=== PATIENT | female | born 2000 | race Caucasian/White ===

== ENCOUNTER 2021-01-28 19:44 | Inpatient (IN) | payer OTHER ==
[~2021-01-28] VITALS: Ht 172.7 cm; Wt 79.2 kg
[2021-01-28] MEDS ORDERED: NS 1,000 ML IV ONE (21:25)
[2021-01-28 22:34] LABS: BASO # 0.1 10^3/uL (0.0-0.2); BASO % 0.3 % (0.0-1.0); EOS # 0.1 10^3/uL (0.0-0.5); EOS % 0.7 % (0.0-3.0); HEMATOCRIT 36.4 % (36.0-47.0); HEMOGLOBIN 11.7 g/dl (12.0-15.5); LYMPH # 1.3 10^3/uL (1.5-5.0); LYMPH % 7.2 % (24.0-44.0); MEAN CORPUSCULAR HGB CONC 32.1 g/dl (32.0-36.5); MEAN CORPUSCULAR VOLUME 93.3 fl (80.0-96.0); MONO # 0.8 10^3/uL (0.0-0.8); MONO % 4.2 % (2.0-8.0); NEUTROPHILS # 16.2 10^3/uL (1.5-8.5); NEUTROPHILS % 86.9 % (36.0-66.0); PLATELET COUNT, AUTOMATED 307 10^3/uL (150-450); WHITE BLOOD COUNT 18.7 10^3/uL (4.0-10.0)
[2021-01-28 23:01] LABS: ALBUMIN 3.3 GM/DL (3.2-5.2); ALT/SGPT 14 U/L (12-78); AMYLASE 29 U/L (25-115); BILIRUBIN,DIRECT 0.1 MG/DL (0.0-0.2); BILIRUBIN,TOTAL 0.3 MG/DL (0.2-1.0); BLOOD UREA NITROGEN 7 MG/DL (7-18); CALCIUM LEVEL 8.4 MG/DL (8.5-10.1); CARBON DIOXIDE LEVEL 26 MEQ/L (21-32); CHLORIDE LEVEL 106 MEQ/L (98-107); CREATININE FOR GFR 0.56 MG/DL (0.55-1.30); GLUCOSE, FASTING 76 MG/DL (70-100); LIPASE 43 U/L (73-393); POTASSIUM SERUM 3.7 MEQ/L (3.5-5.1); SODIUM LEVEL 140 MEQ/L (136-145); TOTAL PROTEIN 6.6 GM/DL (6.4-8.2)
[2021-01-28 23:09] LABS: HCG, SERUM QUALITATIVE POSITIVE (NEGATIVE)
[2021-01-28] MEDS ORDERED: ACETAMINOPHEN 500 MG TAB PO ONE (23:25)
[2021-01-28] MEDS ORDERED: NS 1,380 ML in IV 1 EA IV ONE (23:40)
[2021-01-29 00:03] LABS: HCG, SERUM QUANTITATIVE 11290 MIU/ML
[2021-01-29] MEDS: cefTRIAXone SOD 1 GM in D5W MINI-BAG PLUS 50 ML IV SCH ×2 (00:16→23:11)
--- NOTE | 2021-01-29 00:45 | REPVR ---
PROCEDURE INFORMATION: Exam: US After First Trimester, Transabdominal Exam date and time: 01/29/2021 12:12 AM Age: 20 years old Clinical indication: complicated by abdominal or pelvic pain; Right lower quadrant; Second trimester; Gestational age or lmp: 15w6d; ; Additional info: Rlq pain, positive hcg TECHNIQUE: Imaging protocol: Real-time transabdominal obstetrical ultrasound of the maternal pelvis and a second or third trimester with image documentation. COMPARISON: No relevant prior studies available. FINDINGS: Gestation: Single intrauterine fetus. heart rate: heartbeat of 169 bpm. presentation: Cephalic presentation Placenta: Anterior placenta. Amniotic fluid: Amniotic fluid is normal for gestational age. ANATOMY: The cord, cord insertion and stomach are normal. BIOMETRY: Gestational age (AUA): The composite gestational age by ultrasound is 16 weeks 1 day. Estimated due date (AUA): The EDC is 07/14/2021. Estimated weight: The estimated weight is 138 grams and is 2nd percentile. Estimated weight percentile: 2nd percentile Biparietal diameter: The BPD measures 3.3 cm suggesting an age of 16 weeks 3 days. Head circumference: The head circumference measures 11.9 cm suggesting an age of 16 weeks 0 days. Abdominal circumference: The abdominal circumference measures 10.3 cm suggesting an age of 16 weeks 3 days. Femur length: The femur length measures 1.8 cm suggesting an age of 15 weeks 4 days. MATERNAL ANATOMY: Uterus: Unremarkable. Cervix: The cervix is closed measuring 2.3 cm in length. Right adnexa: The right ovary is not seen. Left adnexa: The left ovary measures 2.9 x 3.6 x 2.2 cm and demonstrates blood flow. IMPRESSION: Single live intrauterine fetus in cephalic presentation with a composite age of 16 weeks 1 day. The EDC is 07/14/2021. Electronically signed by: Weston Worley On 01/29/2021 00:45:14 AM
[2021-01-29 01:25] LABS: RSV AMPLIFICATION NEGATIVE (NEGATIVE)
--- NOTE | 2021-01-29 03:20 | REPVR ---
PROCEDURE INFORMATION: Exam: MR Abdomen Without Contrast Exam date and time: 01/29/2021 2:29 AM Age: 20 years old Clinical indication: Abdominal pain; Other: Rlq; Patient HX: PT and complains of RT lower quadrant pain that also radiates to her RT flank and back. ; Additional info: Rlq pain, , R/O appendicitis TECHNIQUE: Imaging protocol: MR of the abdomen without contrast. COMPARISON: US OBS SINGEL GEST 01/28/2021 11:39 PM FINDINGS: Liver: No mass. Gallbladder and bile ducts: Unremarkable. No stones. No ductal dilation. Pancreas: Unremarkable. No ductal dilation. Spleen: Unremarkable. No splenomegaly. Adrenal glands: Unremarkable. No mass. Kidneys and ureters: Mild right hydronephrosis. Stomach and bowel: Visualized stomach and intestines are unremarkable. Appendix: No evidence of acute appendicitis although the appendix is not clearly visualized. Intraperitoneal space: No free fluid. Arteries: No abdominal aortic aneurysm. Reproductive: Gravid uterus. Bones/joints: Unremarkable. Soft tissues: Unremarkable. IMPRESSION: No evidence of acute appendicitis although the appendix is not clearly visualized. Mild right hydronephrosis. Electronically signed by: Roverto Ponce On 01/29/2021 03:20:18 AM
--- NOTE | 2021-01-29 05:59 | HPEPDOC ---
[facility] Medical History & Physical Date of Admission Jan 29, 2021 Date of Service: Jan 29, 2021 Attending Physician: DHAVAL MICHAEL DO History and Physical CHIEF COMPLAINT: Right-sided flank/back pain HISTORY OF PRESENT ILLNESS: Sylvia is a 20yo at 16+1wks by today's U/S with EDC [id number] who presented to ER for c/o 1 day of right-sided flank/back pain. She reports she did not know she was until ER evaluation. She reports nausea and vomiting after the onset of pain but it has improved with zofran in the ER. She reports her pain is already improving since treatment in the ER. She reports she is very overwhelmed right now learning she is . She is unsure of exact conception or FOB. She is unsure if she wants to keep the . Denies VB, abnml vaginal discharge, or pelvic pain. 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 Children: None Employment: [employer] Tobacco use:Endorses smoking 1 cigarette daily. ETOH: Endorses ETOH use 2-3x weekly with last drink yesterday. Illicit drug use: Denies IV drug use: Denies Other relevant social factors: FAMILY HISTORY: Denies ALLERGIES: NKDA REVIEW OF SYSTEMS: Denies GARCIA, chest pain, SOB, pelvic pain, dysuria, abnml vaginal discharge, diarrhea, constipation, VB. HOME MEDICATIONS: Denies PHYSICAL EXAMINATION: VITAL SIGNS: Normotensive, noted to have Tmax of 100.4 in ER with tachycardia GENERAL APPEARANCE: Resting comfortably in bed in NAD conversing in full sentences HEENT: NC/AT, airway patent and self-maintained CARDIOVASCULAR: Well-perfused LUNGS: No exaggerated respiratory effort appreciated ABDOMEN: Soft, nontender, nondistended, U-4 EXTREMITIES: No edema, no calf tenderness PSYCHIATRIC: mood congruent with affect LABORATORY DATA: See below. IMAGING: Exam: US After First Trimester, Transabdominal Exam date and time: 01/29/2021 12:12 AM Age: 20 years old Clinical indication: complicated by abdominal or pelvic pain; Right lower quadrant; Second trimester; Gestational age or lmp: 15w6d; ; Additional info: Rlq pain, positive hcg TECHNIQUE: Imaging protocol: Real-time transabdominal obstetrical ultrasound of the maternal pelvis and a second or third trimester with image documentation. COMPARISON: No relevant prior studies available. FINDINGS: Gestation: Single intrauterine fetus. heart rate: heartbeat of 169 bpm. presentation: Cephalic presentation Placenta: Anterior placenta. Amniotic fluid: Amniotic fluid is normal for gestational age. ANATOMY: The cord, cord insertion and stomach are normal. BIOMETRY: Gestational age (AUA): The composite gestational age by ultrasound is 16 weeks 1 day. Estimated due date (AUA): The EDC is 07/14/2021. Estimated weight: The estimated weight is 138 grams and is 2nd percentile. Estimated weight percentile: 2nd percentile Biparietal diameter: The BPD measures 3.3 cm suggesting an age of 16 weeks 3 days. Head circumference: The head circumference measures 11.9 cm suggesting an age of 16 weeks 0 days. Abdominal circumference: The abdominal circumference measures 10.3 cm suggesting an age of 16 weeks 3 days. Femur length: The femur length measures 1.8 cm suggesting an age of 15 weeks 4 days. MATERNAL ANATOMY: Uterus: Unremarkable. Cervix: The cervix is closed measuring 2.3 cm in length. Right adnexa: The right ovary is not seen. Left adnexa: The left ovary measures 2.9 x 3.6 x 2.2 cm and demonstrates blood flow. IMPRESSION: Single live intrauterine fetus in cephalic presentation with a composite age of 16 weeks 1 day. The EDC is 07/14/2021. Electronically signed by: Weston Worley On 01/29/2021 00:45:14 AM MRI PROCEDURE INFORMATION: Exam: MR Abdomen Without Contrast Exam date and time: 01/29/2021 2:29 AM Age: 20 years old Clinical indication: Abdominal pain; Other: Rlq; Patient HX: PT and complains of RT lower quadrant pain that also radiates to her RT flank and back. ; Additional info: Rlq pain, , R/O appendicitis TECHNIQUE: Imaging protocol: MR of the abdomen without contrast. COMPARISON: US OBS SINGEL GEST 01/28/2021 11:39 PM FINDINGS: Liver: No mass. Gallbladder and bile ducts: Unremarkable. No stones. No ductal dilation. Pancreas: Unremarkable. No ductal dilation. Spleen: Unremarkable. No splenomegaly. Adrenal glands: Unremarkable. No mass. Kidneys and ureters: Mild right hydronephrosis. Stomach and bowel: Visualized stomach and intestines are unremarkable. Appendix: No evidence of acute appendicitis although the appendix is not clearly visualized. Intraperitoneal space: No free fluid. Arteries: No abdominal aortic aneurysm. Reproductive: Gravid uterus. Bones/joints: Unremarkable. Soft tissues: Unremarkable. IMPRESSION: No evidence of acute appendicitis although the appendix is not clearly visualized. Mild right hydronephrosis. Electronically signed by: Roverto Ponce On 01/29/2021 03:20:18 AM MICROBIOLOGY: Please see below. Urine culture pending ASSESSMENT: 20yo at 16+1wks with complicated UTI vs pyelonephritis notable for right-sided flank pain, +UA, and elevated WBC. . PLAN: 1. Rocephin abx 1gm q24hr until 24hrs afebrile then transition to oral antibi otics 2. PNV daily 3. Zofran prn N/V 4. Tylenol prn pain/fever 5. CBC/BMP QAM for trend 6. IV fluids with NS @150ml/hr 7. Vitals q4h, doptones daily 8. Regular diet as tolerated 9. Encourage ambulation OOB as tolerated Approx 30 minutes was spent at the bedside counseling patient in regards to ter mination (if desired, patient aware not covered by or done by providers with referral to [facility]), care plan, support programs to include [facility] at 28wks to get her out of [facility] for housing, chapter 8 to exit the , childcare support with recommendation to get on wait list now for slot, ACS/WIC services. Patient does not know who FOB is, discussed that unable to complete paternity testing in utero through but this an option for significant ayo-iv-ryeqzf cost through outside labs if desired. Patient appreciated to be very overwhelmed at the news she is and is undecided at this time but appreciative of the information given today. Vital Signs Vital Signs Date Time Temp Pulse Resp B/P (MAP) Pulse Ox O2 Delivery O2 Flow Rate FiO2 01/29/21 03:57 99.5 79 14 112/62 (79) 97 Room Air Laboratory Data Labs 24H Laboratory Tests 2 01/28/21 21:40: Urine Color YELLOW, Urine Appearance TURBIDH, Urine pH 6.0, Urine Specific [place] 1.013, Urine Protein 2+H, Urine Glucose (UA) NEGATIVE, Urine Ketones TRACEH, Urine Blood 2+H, Urine Nitrite POSITIVEH, Urine Bilirubin NEGATIVE, Urine Urobilinogen 0.2, Urine Leukocyte Esterase 3+H, Urine WBC (Auto) TNTCH, Urine RBC (Auto) 42H, Urine Hyaline Casts (Auto) 0, Urine Bacteria (Auto) 2+H, Urine Squamous Epithelial Cells 0, Urine Mucus (Auto) SMALL, Urine Sperm (Auto) 01/28/21 22:27: Immature Granulocyte % (Auto) 0.7, Neutrophils (%) (Auto) 86.9H, Lymphocytes (%) (Auto) 7.2L, Monocytes (%) (Auto) 4.2, Eosinophils (%) (Auto) 0.7, Basophils (%) (Auto) 0.3, Neutrophils # (Auto) 16.2H, Lymphocytes # (Auto) 1.3L, Monocytes # (Auto) 0.8, Eosinophils # (Auto) 0.1, Basophils # (Auto) 0.1, Nucleated Red Blood Cells % (auto) 0.0, Anion Gap 8, Calcium Level 8.4L, Total Bilirubin 0.3, Direct Bilirubin 0.1, Aspartate Amino Transf (AST/SGOT) 7, Alanine Aminotransferase (ALT/SGPT) 14, Alkaline Phosphatase 52, Total Protein 6.6, Albumin 3.3, Albumin/Globulin Ratio 1.0L, Amylase Level 29, Lipase 43L, Human Chorionic Gonadotropin, Qual POSITIVEA, Human Chorionic Gonadotropin, Quant [id number] 01/29/21 00:39: Lactic Acid Level 1.5, Coronavirus (COVID-19)(PCR) NEGATIVE, Influenza Type A (RT-PCR) NEGATIVE, Influenza Type B (RT-PCR) NEGATIVE, Respiratory Syncytial Virus (PCR) NEGATIVE CBC/BMP Laboratory Tests 01/28/21 22:27 Microbiology Microbiology 01/28/21 Urine Culture, Received Pending Home Medications No Active Prescriptions or Reported Meds Allergies Coded Allergies: No Known Allergies (Unverified , 01/28/21) A-FIB/CHADSVASC A-FIB History Current/History of A-Fib/PAF?: No Current PO Anticoag Therapy: No DHAVAL MICHAEL DO Jan 29, 2021 05:52
[2021-01-29 06:03] VITALS: BP 118/54
[2021-01-29 09:58] VITALS: BP 103/55
[2021-01-29 14:08] VITALS: BP 105/52
[2021-01-29 17:59] VITALS: BP 135/62
[2021-01-29 22:00] VITALS: BP 123/55
[2021-01-30 02:00] VITALS: BP 113/54
[2021-01-30 05:53] VITALS: BP 118/56
--- NOTE | 2021-01-30 06:58 | DS.PDOC ---
Discharge Summary General Date of Admission Jan 29, 2021 at 0401 am Date of Discharge 01/30/2021 Primary Care Physician: DHAVAL MICHAEL DO Attending Physician: Mark Roy MD Discharge Summary PROCEDURES PERFORMED DURING STAY: [None]. ADMITTING DIAGNOSES: 1. 16 week complicated by UTI DISCHARGE DIAGNOSES: 1. 16 week complicated by UTI COMPLICATIONS/CHIEF COMPLAINT: 15WKS ,Complicated UTI. HISTORY OF PRESENT ILLNESS: ADMITTED THROUGH ED WITH HISTORY RIGHT FLANK PAIN WORK UP DISCOVERY OF AND COMPLICATED BY UTI . HOSPITAL COURSE: RESOLVING UTI AFTER 2 DOSES OF ROCEPHIN AND IV FLUIDS . DISCHARGE MEDICATIONS: MEDICATION AT [facility] ALLERGIES: Please see below. PHYSICAL EXAMINATION ON DISCHARGE: VITAL SIGNS: Please see below. GENERAL: WELL HYDRATED HEENT: NORMAL NECK: NO JVD NO BRUITS CARDIOVASCULAR EXAMINATION: S1 S2 NORMAL NO MURMURS REGULAR RHYTHM NO CLICKS NO RUBS RESPIRATORY EXAMINATION: CLEAR TO BASES ABDOMINAL EXAMINATION: BS NORMAL SF HEIGHT 15 WEEKS FH ACTIVE EXTREMITIES: NO EDEMA NO DVT SKIN: COOL DRY NEUROLOGICAL EXAMINATION: NORMAL PSYCHIATRIC EXAMINATION: NORMAL LABORATORY DATA: Please see below. IMAGING: PROGNOSIS:RECOVERING FROM UTI ACTIVITY: [As tolerated]. 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 DISCHARGE INSTRUCTIONS: 1. REST MEDICATION FLUIDS MAKE FIRST OB APPOINTMENT AT [facility] OB ITEMS TO FOLLOWUP ON ON OUTPATIENT: 1. . DISCHARGE CONDITION: [Stable]. TIME SPENT ON DISCHARGE: Greater than 25 minutes. Vital Signs/I&Os Vital Signs Date Time Temp Pulse Resp B/P (MAP) Pulse Ox O2 Delivery O2 Flow Rate FiO2 01/30/21 05:53 99.9 83 18 118/56 (76) 98 Room Air I&O- Last 24 Hours up to 6 AM 01/30/21 05:59 Intake Total 3940 ml Output Total 5375 ml Balance -1435 ml Laboratory Data Labs 24H Item Value Date Time Sodium Level 140 MEQ/L 01/28/212226 Potassium Level 3.7 MEQ/L 01/28/212226 Chloride Level 106 MEQ/L 01/28/212226 Carbon Dioxide Level 26 MEQ/L 01/28/212226 Anion Gap 8 MEQ/L 01/28/212226 Blood Urea Nitrogen 7 MG/DL 01/28/212226 Creatinine 0.56 MG/DL 01/28/212226 Fasting Glucose 76 MG/DL 01/28/212226 Lactic Acid Level 1.5 MMOL/L 01/29/219 Calcium Level 8.4 MG/DL L 01/28/212226 Total Bilirubin 0.3 MG/DL 01/28/212226 Direct Bilirubin 0.1 MG/DL 01/28/212226 Alanine Aminotransferase (ALT/SGPT) 14 U/L 01/28/212226 Aspartate Amino Transf (AST/SGOT) 7 U/L 01/28/212226 Alkaline Phosphatase 52 U/L 01/28/212226 Total Protein 6.6 GM/DL 01/28/212226 Albumin 3.3 GM/DL 01/28/212226 Albumin/Globulin Ratio 1.0 L 01/28/212226 Lipase 43 U/L L 01/28/212226 Human Chorionic Gonadotropin, Qual POSITIVE A 01/28/212226 Human Chorionic Gonadotropin, Quant [id number] MIU/ML 01/28/212226 CBC/BMP Item Value Date Time White Blood Count 18.7 10^3/uL H 01/28/212226 Red Blood Count 3.90 10^6/uL L 01/28/212226 Hemoglobin 11.7 g/dl L 01/28/212226 Hematocrit 36.4 % 01/28/212226 Mean Corpuscular Volume 93.3 fl 01/28/212226 Mean Corpuscular Hemoglobin 30.0 pg 01/28/212226 Mean Corpuscular Hemoglobin Concent 32.1 g/dl 01/28/212226 Red Cell Distribution Width 12.3 % 01/28/212226 Platelet Count 307 10^3/uL 01/28/212226 Immature Granulocyte % (Auto) 0.7 % 01/28/212226 Neutrophils (%) (Auto) 86.9 % H 01/28/212226 Lymphocytes (%) (Auto) 7.2 % L 01/28/212226 Monocytes (%) (Auto) 4.2 % 01/28/212226 Eosinophils (%) (Auto) 0.7 % 01/28/212226 Basophils (%) (Auto) 0.3 % 01/28/212226 Neutrophils # (Auto) 16.2 10^3/uL H 01/28/21 2227 Lymphocytes # (Auto) 1.3 10^3/uL L 01/28/212226 Monocytes # (Auto) 0.8 10^3/uL 01/28/212226 Eosinophils # (Auto) 0.1 10^3/uL 01/28/212226 Basophils # (Auto) 0.1 10^3/uL 01/28/212226 Microbiology Microbiology 01/28/21 Urine Culture, Received Pending Discharge Medications No Active Prescriptions or Reported Meds Allergies Coded Allergies: No Known Allergies (Unverified , 01/28/21) Mark Roy MD Jan 30, 2021 06:42
[2021-01-30 07:44] LABS: BLOOD UREA NITROGEN 5 MG/DL (7-18); CALCIUM LEVEL 8.2 MG/DL (8.5-10.1); CARBON DIOXIDE LEVEL 23 MEQ/L (21-32); CHLORIDE LEVEL 111 MEQ/L (98-107); CREATININE FOR GFR 0.42 MG/DL (0.55-1.30); GLUCOSE, FASTING 76 MG/DL (70-100); POTASSIUM SERUM 3.8 MEQ/L (3.5-5.1); SODIUM LEVEL 141 MEQ/L (136-145)
== END 2021-01-30 09:05 | disposition home or self-care (01) | DRG 833 ==
LOC: M ED 19:44 → EEVIPCON 01-29 04:01 → M ED INP 01-29 04:01 → M OBS 01-29 05:30
DX: O23.42 Unspecified infection of urinary tract in pregnancy, second trimester (principal); Z3A.16 16 weeks gestation of pregnancy; Z20.822 Contact with and (suspected) exposure to COVID-19

== ENCOUNTER 2021-02-04 11:11 | Emergency (ER) | payer OTHER ==
[~2021-02-04] VITALS: Ht 203.2 cm; Wt 81.9 kg
[2021-02-04 12:52] LABS: BASO # 0.1 10^3/uL (0.0-0.2); BASO % 0.5 % (0.0-1.0); EOS # 0.1 10^3/uL (0.0-0.5); EOS % 0.9 % (0.0-3.0); HEMATOCRIT 35.9 % (36.0-47.0); HEMOGLOBIN 11.9 g/dl (12.0-15.5); LYMPH # 1.9 10^3/uL (1.5-5.0); MEAN CORPUSCULAR HEMOGLOBIN 30.2 pg (27.0-33.0); MEAN CORPUSCULAR HGB CONC 33.1 g/dl (32.0-36.5); MEAN CORPUSCULAR VOLUME 91.1 fl (80.0-96.0); MONO # 0.4 10^3/uL (0.0-0.8); MONO % 3.1 % (2.0-8.0); NEUTROPHILS # 9.4 10^3/uL (1.5-8.5); NEUTROPHILS % 78.6 % (36.0-66.0); PLATELET COUNT, AUTOMATED 367 10^3/uL (150-450); RED BLOOD COUNT 3.94 10^6/uL (4.00-5.40)
[2021-02-04] MEDS ORDERED: NS 1,000 ML IV ONE (13:05)
[2021-02-04 13:26] LABS: ALBUMIN 3.5 GM/DL (3.2-5.2); ALT/SGPT 15 U/L (12-78); BILIRUBIN,DIRECT < 0.1 MG/DL (0.0-0.2); BILIRUBIN,TOTAL 0.3 MG/DL (0.2-1.0); FREE T4 1.11 NG/DL (0.78-1.33); LIPASE 47 U/L (73-393); THYROID STIMULATING HORMONE 0.635 uIU/ML (0.463-3.98); TOTAL PROTEIN 6.9 GM/DL (6.4-8.2)
[2021-02-04 14:19] VITALS: BP 132/68
[2021-02-04 14:21] LABS: APPEARANCE, URINE HAZY (CLEAR); BACTERIA, URINE AUTO NEGATIVE (NEGATIVE); BILIRUBIN, URINE AUTO NEGATIVE (NEGATIVE); BLOOD, URINE BLOOD NEGATIVE (NEGATIVE); COLOR, URINE YELLOW (YELLOW); GLUCOSE, URINE (UA) AUTO NEGATIVE (NEGATIVE); KETONE, URINE AUTO TRACE mg/dL (NEGATIVE); LEUKOCYTE ESTERASE, URINE AUTO TRACE (NEGATIVE); MUCUS, URINE SMALL (NEGATIVE); NITRITE, URINE AUTO NEGATIVE (NEGATIVE); PROTEIN, URINE AUTO NEGATIVE (NEGATIVE); RBC, URINE AUTO 1 /HPF (0-3); SPECIFIC GRAVITY URINE AUTO 1.014 (1.002-1.035); SQUAMOUS EPITHELIAL CELL UR AU 1 /HPF (0-6); UROBILINOGEN, URINE AUTO 0.2 mg/dL (0.0-2.0); WBC, URINE AUTO 2 /HPF (0-3)
--- NOTE | 2021-02-04 17:39 | ECGEPIP ---
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
== END 2021-02-04 14:21 | disposition home or self-care (01) ==
LOC: M ED 11:11
DX: O99.891 Other specified diseases and conditions complicating pregnancy (principal); R55 Syncope and collapse; Z3A.16 16 weeks gestation of pregnancy

== ENCOUNTER 2021-07-13 04:16 | Inpatient (IN) | payer OTHER ==
[2021-07-13] VITALS (34 sets, daily range): BP systolic 98–151; BP diastolic 57–91
[~2021-07-13] VITALS: Ht 172.7 cm; Wt 92.4 kg
[2021-07-13] MEDS ORDERED: VITA500C24 PO (05:03)
[2021-07-13] MEDS ORDERED: FERR325T3 PO (05:03)
[2021-07-13] MEDS ORDERED: PRENTAB9 PO (05:03)
[2021-07-13] MEDS ORDERED: MACR100C43 PO (05:03)
[2021-07-13] MEDS ORDERED: HOME MED LIST COMPLETE! XX SCH (05:05)
[2021-07-13] MEDS ORDERED: OXYTOCIN INJ 10 UNITS/ML VIAL (J2590) IV PRN (05:45)
[2021-07-13] MEDS ORDERED: LR 1,000 ML IV SCH (05:45)
[2021-07-13] MEDS ORDERED: METHYLERGONOVINE MALEATE 0.2 MG/ML VIAL (J2210) IM PRN (05:45)
[2021-07-13] MEDS ORDERED: LACTATED RINGER'S 1000 ML IV ONE (05:45)
[2021-07-13] MEDS ORDERED: OXYTOCIN DRIP 30 UNITS in IV 1 EA IV PRN ×4 (05:45)
[2021-07-13 06:12] LABS: HEMOGLOBIN 10.8 g/dl (12.0-15.5); MEAN CORPUSCULAR HEMOGLOBIN 30.9 pg (27.0-33.0); MEAN CORPUSCULAR HGB CONC 33.8 g/dl (32.0-36.5); MEAN CORPUSCULAR VOLUME 91.4 fl (80.0-96.0); PLATELET COUNT, AUTOMATED 257 10^3/uL (150-450); WHITE BLOOD COUNT 16.4 10^3/uL (4.0-10.0)
[2021-07-13] MEDS ORDERED: FENTANYL 2MCG/ML ROPIVACAINE 0.2% IN 0.9% NACL 100ML IVBAG As Ordered ONE (06:32)
[2021-07-13] MEDS ORDERED: PIPERACILLIN/TAZOBACTAM SOD 2.25 GM in D5W MINI-BAG PLUS 50 ML IV SCH (07:00)
[2021-07-13] MEDS ORDERED: ePHEDrine SULFATE 25 MG/5 ML(5MG/ML) SYRINGE IV PRN (07:20)
[2021-07-13] MEDS ORDERED: ONDANSETRON 4MG/2ML VIAL IV PRN (07:20)
[2021-07-13] MEDS ORDERED: NALOXONE INJ 0.4MG/1ML VIAL (J2310 PER 1MG) IV PRN (07:20)
[2021-07-13] MEDS ORDERED: LACTATED RINGER'S 1000 ML IV PRN (07:20)
[2021-07-13] MEDS ORDERED: FENTANYL/ROPIVACAINE/NACL BAG 100 ML EPIDURAL SCH (07:20)
[2021-07-13] MEDS ORDERED: diphenhydrAMINE 50MG/ML VIAL (J1200) IV PRN (07:20)
[2021-07-13] MEDS ORDERED: EPIDURAL/PCA KEYS XX PRN (07:20)
[2021-07-13] MEDS ORDERED: REFRIGERATOR IV KEYS XX PRN (07:20)
[2021-07-13] MEDS ORDERED: EPIDURAL COMMENT XX SCH (07:20)
[2021-07-13] MEDS ORDERED: OXYTOCIN DRIP 30 UNITS in IV 1 EA IV SCH ×3 (08:45→13:50)
--- NOTE | 2021-07-13 09:41 | IPNPDOC ---
Obstetrical Progress Note Date of Service Jul 13, 2021 Subjective Pt comfortable with epidural. No complaints at this time. Objective Vital Signs Date Time Temp Pulse Resp B/P (MAP) Pulse Ox O2 Delivery O2 Flow Rate FiO2 07/13/21 08:28 53 133/75 (94) 07/13/21 07:40 98.9 07/13/21 07:34 18 Assessment Heart Rate (FHR): 120 Variability: Moderate Accelerations: Positive Decelerations: None Heart Rate Tracing: Category I Tocometer Contractions: Yes Frequency: irregular, every 1-5 min. Sterile Vaginal Examination Dilation: 7 cm Effacement (%): 90% Station: -1, 0 Cervical Consistency: Soft Cervical Position: Middle Postion/Presentation: Cephalic presentation Assessment and Plan Status: Reassuring Group B Streptococcus: Positive (ESBL +, sensitive to zosyn) Anticipate: Vaginal Delivery Additional Comments 20yo at 39w6d by 16wk US with RUBIO Jun admitted in active labor. SVE this AM unchanged from admission, pt richard irregularly. Comfortable with epidural at this time. Pitocin ordered. GBS prophylaxis initiated at 0600, will leave membranes intact at this time. Continue to monitor and anticipate vaginal delivery PAU FRASER M.D. Jul 13, 2021 09:41
[2021-07-13] MEDS ORDERED: MEASLES,MUMPS,RUBELLA VACCINE INJ (MMR-II) (90707) SC SCH (12:30)
[2021-07-13] MEDS ORDERED: DOCUSATE SODIUM 100MG CAPSULE PO PRN (12:30)
[2021-07-13] MEDS ORDERED: ACETAMINOPHEN TAB 650MG DOSE (2X325MG) PO PRN (12:30)
[2021-07-13] MEDS ORDERED: ACETAMINOPHEN 500 MG TAB PO PRN (12:30)
[2021-07-13] MEDS ORDERED: IBUPROFEN 600MG TAB PO PRN (12:30)
[2021-07-13] MEDS ORDERED: RHOGAM 300 MCG (1500 IU) INJ (J2790) IM SCH (12:30)
[2021-07-13] MEDS ORDERED: METHYLERGONOVINE MALEATE 0.2 MG TAB PO PRN (12:30)
[2021-07-13] MEDS ORDERED: DIBUCAINE 1% OINTMENT 30GM TOP PRN (12:30)
[2021-07-13] MEDS ORDERED: OXYTOCIN DRIP 30 UNITS in IV 1 EA IV ONE (13:55)
--- NOTE | 2021-07-13 14:27 | DNPDOC ---
[facility] Delivery Note Delivery Note DATE OF DELIVERY: 07/13/21 PREDELIVERY DIAGNOSIS: 39 6/7 weeks' gestation and labor. POST DELIVERY DIAGNOSIS: Delivered. PROCEDURE: Spontaneous vaginal delivery, repair of bilateral labial lacerations ABSTRACTOR: Dr. Fraser ANESTHESIA: Epidural ESTIMATED BLOOD LOSS: 200 mL. FINDINGS: 8 pound 4 ounce female , Score 8/9. Additional 30mU bag of pitocin and rectal cytotec 1000mcg administered for hemostasis DELIVERY SUMMARY: Patient is a 20yo admitted at 39w6d in active labor. Patient had spontaneous ROM and progressed to C/C/+2 and was allowed to push. With excellent maternal pushing efforts, delivered head without difficulty, quickly followed by the remainder of body. placed on mother's abdomen and noted to be crying and moving all extremities. Cord doubly clamped and cut. Placenta delivered intact. Large left labial laceration and small right labial laceration noted, both repaired in usual fashion with 3-0 vicryl. Patient continued to have a small amount of continuous bleeding after delivery. Uterine tone firm and no cervical lacerations noted. Administered additional bag of 30mU of pitocin as well as 1000mcg of rectal cytotec. Good hemostasis noted. Mom and baby stable immediately . PAU FRASER M.D. Jul 13, 2021 12:33
[2021-07-13] MEDS: IBUPROFEN 800 MG TAB PO PRN (17:08)
[2021-07-13] MEDS: PRENATAL VITAMINS CHEWABLE TABLET PO SCH (19:00)
[2021-07-14 05:54] VITALS: BP 138/75
--- NOTE | 2021-07-14 07:42 | IPNPDOC ---
Progress Note Date of Service: Jul 14, 2021 Progress Note SUBJECT: Sylvia is a 20-year-old 1 now Para 1001 status post uncomplicated spontaneous vaginal delivery at 39 6/7 weeks' on 07/13/21 of a 8 pound 4 ounce female , Score 8/9. Additional 30mU bag of pitocin and rectal cytotec 1000mcg administered for hemostasis. Pt doing well day # 1. She has been ambulating, voiding spontaneously without issue and tolerating regular diet. Breast feeding without issue. Reports lochia is minimal. OBJECTIVE: VITAL SIGNS: Within normal limits, afebrile. Alert and oriented times three. normal work of breathing Heart rate: Regular rate and rhythm. Abdomen: Fundus firm at U-2. Soft, NTTP. ASSESSMENT: Sylvia is a 20-year-old 1 now Para 1001 status post uncomplicated spontaneous vaginal delivery at 39 6/7 weeks' on 07/13/21 of a 8 pound 4 ounce female infant, Score 8/9. Additional 30mU bag of pitocin and rectal cytotec 1000mcg administered for hemostasis. Pt doing well day # 1. Vitals within normal limits, afebrile, hemodynamically stable with no evidence of infection. PLAN: 1. Discharge to home tomorrow. 2. Tylenol and Motrin for pain. 3. Encourage breast feeding and ambulation. 4. Plans to discuss contraception at 6wk visit 5. Routine PP visit in 6 weeks in clinic. 6. Discussed return precautions at length. VS, I&O, 24H, Fishbone Vital Signs/I&O Vital Signs Label Value Date Time Patient Temperature 97.9 degrees F 07/14/21 0554 Temperature Source Axillary 07/14/21 0554 Pulse 69 07/14/21 0554 Respiratory Rate 18 bpm 07/14/21 0554 Blood Pressure Assessment 138/75 (96) 07/14/21 0554 Source Automatic Cuff (NIBP) Bedside Pulse Oximetry 97 % 07/14/21 0554 Vital Signs Date Time Temp Pulse Resp B/P (MAP) Pulse Ox O2 Delivery O2 Flow Rate FiO2 07/13/21 16:04 99.2 54 18 135/70 (91) 97 I&O- Last 24 Hours up to 6 AM 07/14/21 06:00 Intake Total 3366.2 ml Output Total 1550 ml Balance 1816.2 ml Laboratory Data 24H LABS Laboratory Tests 2 07/13/21 05:09: Urine Color STRAW, Urine Appearance HAZY, Urine pH 7.0, Urine Specific [place] 1.010, Urine Protein NEGATIVE, Urine Glucose (UA) NEGATIVE, Urine Ketones NEGATIVE, Urine Blood 3+H, Urine Nitrite NEGATIVE, Urine Bilirubin NEGATIVE, Urine Urobilinogen 0.2, Urine Leukocyte Esterase TRACEH, Urine WBC (Auto) 10H, Urine RBC (Auto) TNTCH, Urine Hyaline Casts (Auto) 0, Urine Bacteria (Auto) NEGATIVE, Urine Squamous Epithelial Cells 12, Urine Mucus (Auto) SMALL, Urine Sperm (Auto) 07/13/21 05:43: Serology Scanned Report Hepatitis B Testing 07/13/21 06:03: Nucleated Red Blood Cells % (auto) 0.0 CBC/BMP Laboratory Tests 07/13/21 06:03 Microbiology Microbiology 07/13/21 Urine Culture, Received Pending PAU FRASER M.D. Jul 14, 2021 05:06
[2021-07-14] MEDS: PRENATAL VITAMINS CHEWABLE TABLET PO SCH (08:42)
[2021-07-14] MEDS: IBUPROFEN 800 MG TAB PO PRN (09:38)
[2021-07-14 17:50] VITALS: BP 136/67
[2021-07-15] MEDS: IBUPROFEN 800 MG TAB PO PRN (05:10)
[2021-07-15 05:33] VITALS: BP 108/62
[2021-07-15 05:56] VITALS: BP 137/57
[2021-07-15] MEDS ORDERED: COLA100C5 PO (06:50)
[2021-07-15] MEDS ORDERED: IBUP-1022 PO (06:50)
--- NOTE | 2021-07-15 06:58 | DSES ---
DISCHARGE SUMMARY DATE OF ADMISSION: 07/13/2021 DATE OF DISCHARGE: 07/15/2021 BRIEF HISTORY: This lady is a 20-year-old 1 now para 1 admitted with spontaneous rupture of membranes at 39 and 6 weeks of gestation, delivered a livebirth female with epidural in place, 8 pounds, 4 ounces, 3730 grams, Apgars of 8 and 9 at 1 and 5 minutes respectively. RISK FACTORS: She is GBS positive, was treated appropriately, history of an STD with a test of cure negative and she has EFLB sensitive to Zosyn. PHYSICAL EXAMINATION: Her blood pressure on discharge was 108/62, respirations 18, pulse 104, temperature is 97.2. We discussed phlebitis, cystitis, mastitis, endometritis and cellulitis, diet, exercise, pain management, perineal, breast and wound care. The rest of the examination was unremarkable. Normocephalic, atraumatic. Neck: Full range of motion. Pupils equal and reactive to light. Distal pulses are symmetric. No evidence of DVT, PE or superficial phlebitis. Chest is clear bilaterally at bases. No wheezes or rhonchi. No CVA. Abdomen is soft, four quadrant bowel sounds are noted. Uterus is 2 below, lochia is moderate. No rashes, lesions or pruritus. No arthralgia or myalgia. No complaint of joint pain. No complaint of cough, wheeze, shortness of breath or dyspnea on exertion. No nausea, vomiting, diarrhea or constipation. No urgency or frequency. Hemoglobin 10.8, hematocrit 32.0, platelets are 257,000. We have a term gestation, delivered a livebirth female . 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 All questions were answered, a 20 minute discussion. cc: [facility]
[2021-07-15] MEDS: PRENATAL VITAMINS CHEWABLE TABLET PO SCH (09:00)
== END 2021-07-15 13:15 | disposition home or self-care (01) | DRG 807 ==
LOC: M LDO 04:16 → M LDI 05:40 → M OBS 15:22
PROVIDERS: ADMIT Obstetrics & Gynecology; ATTEND Obstetrics & Gynecology
PROC: 10E0XZZ Delivery of Products of Conception, External Approach (ICD-10-PCS; principal; 2021-07-13)
PROC: 0HQ9XZZ Repair Perineum Skin, External Approach (ICD-10-PCS; 2021-07-13)
DX: O99.824 Streptococcus B carrier state complicating childbirth (principal); Z37.0 Single live birth; Z3A.39 39 weeks gestation of pregnancy; O70.0 First degree perineal laceration during delivery